=== PATIENT | female | born 1945 | race Two or more races ===

== ENCOUNTER 2020-07-18 05:46 | Day surgery (SDC) | payer OTHER ==
[~2020-07-18 05:46] MED LIST: ALENDRONATE SOD70 MG PO; ALTOPREV40 MG PO
[2020-07-18] MEDS ORDERED: ULTRAM50 MG PO (09:07)
[2020-07-18] MEDS ORDERED: DERMOPLAST PAIN78 GM TOP (09:08)
== END 2020-07-18 14:15 | disposition home or self-care (01) ==
LOC: CIR.AMB 05:46
PROVIDERS: ATTEND Surgery
DX: D12.8 Benign neoplasm of rectum (principal); Z20.822 Contact with and (suspected) exposure to COVID-19